=== PATIENT | female | born 1980 | race Two or more races ===

== ENCOUNTER 2025-07-22 10:37 | Inpatient (IN) | payer MEDICAID ==
[~2025-07-22] VITALS: Ht 172.7 cm; Wt 66.5 kg
[2025-07-22] MEDS ORDERED: LEVE500T9 PO (11:32)
[2025-07-22 11:33] LABS: PLATELET COUNT (AUTO) 310 K/uL (150-450); RED BLOOD CELL COUNT(AUTO) 3.39 MIL/uL (4.0-5.2); RED CELL DISTRIBUTION WIDTH 15.1 % (11.5-15.0); WHITE BLOOD COUNT (AUTO) 19.2 K/uL (4.3-11.0)
[2025-07-22 11:44] LABS: CALCIUM, SERUM 8.9 mg/dL (8.5-10.1); CREATININE 0.6 mg/dL (0.6-1.3); SODIUM SERUM 123.0 mmol/L (136-145); UREA NITROGEN, BLOOD 7.0 mg/dL (7-18)
[2025-07-22 11:47] LABS: INR 2.03 (0.91-1.10)
[2025-07-22 11:51] LABS: ASPARTATE AMINOTRANSFERASE 167.0 U/L (15-37); TOTAL PROTEIN, SERUM 8.8 g/dL (6.4-8.2)
[2025-07-22] MEDS ORDERED: IOHEXOL-300 100 ML VIAL IV ONE (12:31)
[2025-07-22] MEDS ORDERED: IV NS 0.9% 250 ML IV ONE (12:32)
[2025-07-22 13:49] LABS: PREGNANCY TEST URINE QUAL NEGATIVE (NEGATIVE)
[2025-07-22] MEDS ORDERED: MAG HYDROX/AL HYDROX/SIMETH 30 ML UDC PO PRN (14:00)
[2025-07-22] MEDS ORDERED: Z GUARD REMEDY 4 OZ OINT TP PRN (14:00)
[2025-07-22] MEDS ORDERED: ZOLPIDEM TARTRATE 5 MG TABLET PO PRN (14:00)
[2025-07-22] MEDS ORDERED: MAGNESIUM HYDROXIDE 30 ML UDC PO PRN (14:00)
[2025-07-22] MEDS ORDERED: ACETAMINOPHEN 325 MG TABLET PO PRN (14:00)
[2025-07-22] MEDS ORDERED: IV D5/0.45 NACL 1,000 ML IV PRN (14:00)
[2025-07-22] MEDS: IV D5/ 0.9% NACL 1,000 ML IV SCH (15:00)
[2025-07-22] MEDS ORDERED: POTASSIUM CL. PREMIX PERIPHER. 50 ML ONE (16:10)
[2025-07-22] MEDS: POTASSIUM CL. PREMIX PERIPHER. 50 ML IV SCH (16:20)
[2025-07-22] MEDS: LEVETIRACETAM (500MG) 500 MG in IV NS 0.9% 100 ML IV SCH (18:10)
[2025-07-22 20:00] VITALS: BP 116/86; TEMP 99; O2SAT 98
[2025-07-23] VITALS (7 sets, daily range): BP systolic 98–116; BP diastolic 70–86; TEMP 97.5–98.8; O2SAT 90–98
[2025-07-23] MEDS: ONDANSETRON HCL/PF 4 MG/2 ML VIAL IVP PRN (06:13)
[2025-07-23 07:50] LABS: PLATELET COUNT (AUTO) 244 K/uL (150-450); RED BLOOD CELL COUNT(AUTO) 2.76 MIL/uL (4.0-5.2); RED CELL DISTRIBUTION WIDTH 15.1 % (11.5-15.0); WHITE BLOOD COUNT (AUTO) 16.1 K/uL (4.3-11.0)
[2025-07-23 07:57] LABS: ASPARTATE AMINOTRANSFERASE 130.0 U/L (15-37); CALCIUM, SERUM 8.0 mg/dL (8.5-10.1); CREATININE 0.6 mg/dL (0.6-1.3); PHOSPHORUS 2.8 mg/dL (2.5-4.9); SODIUM SERUM 126.0 mmol/L (136-145); TOTAL PROTEIN, SERUM 6.6 g/dL (6.4-8.2); UREA NITROGEN, BLOOD 8.0 mg/dL (7-18)
[2025-07-23] MEDS: PANTOPRAZOLE 40 MG VIAL IV SCH (08:52)
[2025-07-23] MEDS: Magnesium 1GM/D5W 100ML PREMIX 100 ML IV SCH (10:30)
[2025-07-23] MEDS: ALBUMIN 25% 50 GM in PREMIX 1 EA IV ONE (13:50)
[2025-07-23] MEDS: ALBUMIN 25% 12.5 GM/50 ML BOTTLE IV STA (13:50)
[2025-07-23] MEDS ORDERED: ALBUMIN 25% 50 GM in PREMIX 1 EA IV PRN (14:00)
[2025-07-23 18:48] LABS: APPEARANCE,URINE CLEAR (CLEAR); BLOOD, URINE NEGATIVE Ery/uL (NEGATIVE); LEUKOCYTE ESTERASE ,URINE NEGATIVE (NEGATIVE); NITRITE, URINE POSITIVE (NEGATIVE); UGLUCOSE TRACE mg/dL (NEGATIVE)
[2025-07-23 18:56] LABS: CREATININE, URINE 119.1 MG/DL (30.0-125.0); URINE SODIUM, RANDOM < 5 mmol/l (40-220); URINE TOTAL PROTEIN 41.6 mg/dL (0-11.9)
[2025-07-23 19:07] LABS: ADD URINE CULTURE YES; SQUAMOUS EPITHELIAL CELL,UR Many /HPF (None Seen)
[2025-07-23] MEDS ORDERED: MIDAZOLAM HCL 2 MG/2ML VIAL ONE (19:35)
[2025-07-23 20:03] LABS: EOSINOPHIL,URINE None Seen
[2025-07-23] MEDS ORDERED: ANESTHESIA TRAY IN PYXIS 1 EA TRAY MC ONE (20:31)
[2025-07-24] VITALS: BP 103/74; TEMP 98.2; O2SAT 93
[2025-07-24 04:03] VITALS: BP 100/74; TEMP 97.8; O2SAT 95
[2025-07-24 06:57] LABS: PLATELET COUNT (AUTO) 219 K/uL (150-450); RED BLOOD CELL COUNT(AUTO) 2.62 MIL/uL (4.0-5.2); RED CELL DISTRIBUTION WIDTH 15.3 % (11.5-15.0); WHITE BLOOD COUNT (AUTO) 15.6 K/uL (4.3-11.0)
[2025-07-24 07:26] LABS: ASPARTATE AMINOTRANSFERASE 128.0 U/L (15-37); CALCIUM, SERUM 8.1 mg/dL (8.5-10.1); CREATININE 0.5 mg/dL (0.6-1.3); PHOSPHORUS 2.2 mg/dL (2.5-4.9); SODIUM SERUM 127.0 mmol/L (136-145); TOTAL PROTEIN, SERUM 6.5 g/dL (6.4-8.2); UREA NITROGEN, BLOOD 8.0 mg/dL (7-18)
[2025-07-24 08:00] VITALS: BP 110/81; TEMP 98.6; O2SAT 96
[2025-07-24 12:00] VITALS: BP 109/84; TEMP 98.4; O2SAT 94
[2025-07-24 16:00] VITALS: BP 117/88; TEMP 98.2; O2SAT 93
[2025-07-24] MEDS: K PHOS NEUTRAL 250 MG TABLET PO ONE (16:43)
[2025-07-24 20:00] VITALS: BP 116/84; TEMP 98.1; O2SAT 93
[2025-07-25] VITALS: BP 116/81; TEMP 98.1; O2SAT 94
[2025-07-25 04:00] VITALS: BP 98/71; TEMP 97.9; O2SAT 97
[2025-07-25 07:56] LABS: PLATELET COUNT (AUTO) 222 K/uL (150-450); RED BLOOD CELL COUNT(AUTO) 2.62 MIL/uL (4.0-5.2); RED CELL DISTRIBUTION WIDTH 15.6 % (11.5-15.0); WHITE BLOOD COUNT (AUTO) 16.9 K/uL (4.3-11.0)
[2025-07-25 07:58] LABS: CALCIUM, SERUM 8.2 mg/dL (8.5-10.1); CREATININE 0.5 mg/dL (0.6-1.3); PHOSPHORUS 2.5 mg/dL (2.5-4.9); SODIUM SERUM 128.0 mmol/L (136-145); UREA NITROGEN, BLOOD 9.0 mg/dL (7-18)
[2025-07-25 08:09] LABS: ASPARTATE AMINOTRANSFERASE 152.0 U/L (15-37); TOTAL PROTEIN, SERUM 6.4 g/dL (6.4-8.2)
[2025-07-25 08:30] VITALS: BP 120/93; TEMP 97.7; O2SAT 94
[2025-07-25] MEDS: SPIRONOLACTONE 25 MG TABLET PO SCH (10:39)
[2025-07-25 16:22] VITALS: BP 111/87; TEMP 98.6; O2SAT 92
[2025-07-25 20:00] VITALS: BP 118/86; TEMP 97.9; O2SAT 95
[2025-07-26 06:04] LABS: CALCIUM, SERUM 8.7 mg/dL (8.5-10.1); CREATININE 0.6 mg/dL (0.6-1.3); PHOSPHORUS 2.8 mg/dL (2.5-4.9); SODIUM SERUM 126.0 mmol/L (136-145); UREA NITROGEN, BLOOD 12.0 mg/dL (7-18)
[2025-07-26 06:07] LABS: ASPARTATE AMINOTRANSFERASE 149.0 U/L (15-37); TOTAL PROTEIN, SERUM 6.7 g/dL (6.4-8.2)
[2025-07-26 06:25] LABS: PLATELET COUNT (AUTO) 270 K/uL (150-450); RED BLOOD CELL COUNT(AUTO) 2.83 MIL/uL (4.0-5.2); RED CELL DISTRIBUTION WIDTH 15.5 % (11.5-15.0); WHITE BLOOD COUNT (AUTO) 19.4 K/uL (4.3-11.0)
[2025-07-26 08:00] VITALS: BP 106/76; TEMP 98.6; O2SAT 94
[2025-07-26] MEDS ORDERED: CEFTRIAXONE 1 G VIAL IM SCH (11:30)
[2025-07-26] MEDS: CEFTRIAXONE 1 G in IV D5W 50 ML IV SCH (11:50)
[2025-07-26 16:00] VITALS: BP 102/80; TEMP 98.8; O2SAT 95
[2025-07-26] MEDS: PROPRANOLOL HCL 10 MG TABLET PO SCH (16:38)
[2025-07-26] MEDS: FUROSEMIDE 40 MG TABLET PO SCH (16:38)
[2025-07-26] MEDS: SPIRONOLACTONE 25 MG TABLET PO SCH (16:39)
[2025-07-26 20:00] VITALS: BP 96/70; TEMP 98.1; O2SAT 96
[2025-07-27 06:16] LABS: ASPARTATE AMINOTRANSFERASE 135.0 U/L (15-37); CALCIUM, SERUM 7.8 mg/dL (8.5-10.1); CREATININE 0.6 mg/dL (0.6-1.3); SODIUM SERUM 123.0 mmol/L (136-145); TOTAL PROTEIN, SERUM 6.1 g/dL (6.4-8.2); UREA NITROGEN, BLOOD 13.0 mg/dL (7-18)
[2025-07-27 06:23] LABS: PHOSPHORUS 3.1 mg/dL (2.5-4.9); PLATELET COUNT (AUTO) 257 K/uL (150-450); RED BLOOD CELL COUNT(AUTO) 2.56 MIL/uL (4.0-5.2); RED CELL DISTRIBUTION WIDTH 15.8 % (11.5-15.0); WHITE BLOOD COUNT (AUTO) 18.2 K/uL (4.3-11.0)
[2025-07-27 08:00] VITALS: BP 93/69; TEMP 98.1; O2SAT 97
[2025-07-27] MEDS: PANTOPRAZOLE 40 MG TABLET.DR PO SCH (08:39)
[2025-07-27 09:57] LABS: BAND % (MANUAL) 1 % (0.0-5.0); EOSINOPHILS % (MANUAL) 1 % (0-4); LYMPHOCYTES % (MANUAL) 15 % (16-48); MONOCYTES % (MANUAL) 8 % (0-11.0); MYELOCYTES % 1 % (0-0); NEUTROPHILS % (MANUAL) 74 (42-76); PLATELET ESTIMATE ADEQUATE
[2025-07-27] MEDS: MAGNESIUM OXIDE 400 MG TABLET PO ONE (10:02)
[2025-07-27] MEDS: ALBUMIN 25% 25 GM in PREMIX 1 EA IV SCH (11:19)
[2025-07-27 16:00] VITALS: BP 92/70; TEMP 97.9; O2SAT 97
[2025-07-27 21:02] VITALS: BP 102/76; TEMP 98.4; O2SAT 94
[2025-07-28 06:17] LABS: PLATELET COUNT (AUTO) 233 K/uL (150-450); RED BLOOD CELL COUNT(AUTO) 2.26 MIL/uL (4.0-5.2); RED CELL DISTRIBUTION WIDTH 16.1 % (11.5-15.0); WHITE BLOOD COUNT (AUTO) 17.9 K/uL (4.3-11.0)
[2025-07-28 06:33] LABS: CALCIUM, SERUM 8.2 mg/dL (8.5-10.1); CREATININE 0.6 mg/dL (0.6-1.3); SODIUM SERUM 125.0 mmol/L (136-145); UREA NITROGEN, BLOOD 13.0 mg/dL (7-18)
[2025-07-28 08:00] VITALS: BP 105/74; TEMP 98.1; O2SAT 95
[2025-07-28 09:04] VITALS: BP 105/74
[2025-07-28] MEDS ORDERED: SPIR25TA6 PO (09:38)
[2025-07-28] MEDS ORDERED: PROP10TA68 PO (09:38)
[2025-07-28] MEDS ORDERED: FURO40TA5 PO (09:38)
[2025-07-28] MEDS ORDERED: CEPH-570 PO (09:40)
[2025-07-28] MEDS ORDERED: PANT40TA49 PO (09:40)
[2025-07-29] MEDS ORDERED: SPIR50TA PO (19:06)
[2025-07-29] MEDS ORDERED: PROP20TA7 PO (19:06)
== END 2025-07-28 16:30 | disposition home or self-care (01) | DRG 254 ==
LOC: ER 10:45 → MED 16:24 → TELE 19:32 → MED 07-25 08:55
PROVIDERS: ADMIT Student in an Organized Health Care Education/Training Program; ATTEND Internal Medicine
PROC: 0W9G3ZZ Drainage of Peritoneal Cavity, Percutaneous Approach (ICD-10-PCS; 2025-07-23)
PROC: 0DJ08ZZ Inspection of Upper Intestinal Tract, Via Natural or Artificial Opening Endoscopic (ICD-10-PCS; principal; 2025-07-23 18:40)
PROC: 0W9G3ZZ Drainage of Peritoneal Cavity, Percutaneous Approach (ICD-10-PCS; 2025-07-26)
DX: K31.89 Other diseases of stomach and duodenum (principal); E44.0 Moderate protein-calorie malnutrition; K70.31 Alcoholic cirrhosis of liver with ascites; E88.09 Other disorders of plasma-protein metabolism, not elsewhere classified; K92.2 Gastrointestinal hemorrhage, unspecified; K76.6 Portal hypertension; B96.20 Unspecified Escherichia coli [E. coli] as the cause of diseases classified elsewhere; N39.0 Urinary tract infection, site not specified; D64.9 Anemia, unspecified; G40.909 Epilepsy, unspecified, not intractable, without status epilepticus; F10.10 Alcohol abuse, uncomplicated; E87.1 Hypo-osmolality and hyponatremia; D72.829 Elevated white blood cell count, unspecified; E87.6 Hypokalemia; R74.01 Elevation of levels of liver transaminase levels; Y90.9 Presence of alcohol in blood, level not specified; Z68.22 Body mass index [BMI] 22.0-22.9, adult
CPT/HCPCS: 36415; 49083; 80048-TC; 80053-TC; 80076-TC; 81001; 82570-TC; 83690-TC; 83735-TC; 83935-TC; 84100-TC; 84295-TC; 84300-TC; 84443-TC; 84550-TC; 84702-TC; 84703-TC; 85025-TC; 85027-TC; 85730-TC; 86850-TC; 87081-TC; 87086-TC; 87186-TC; A4216; A4223; G0378; J0696; J1953; J2250; J2405; J2470; J2704; J3475; J3480; J3490; J7030; J7040; J7042; J7050; J7060; P9047; Q9967

== ENCOUNTER 2025-07-31 11:49 | Inpatient (IN) | payer MEDICAID ==
[~2025-07-31] VITALS: Ht 172.7 cm; Wt 67.6 kg
[~2025-07-31 11:49] MED LIST: CEPH-570 PO; FURO40TA5 PO; LEVE500T9 PO; PANT40TA49 PO; PROP20TA7 PO; SPIR50TA PO
[2025-07-31 12:52] LABS: PLATELET COUNT (AUTO) 407 K/uL (150-450); RED BLOOD CELL COUNT(AUTO) 2.72 MIL/uL (4.0-5.2); RED CELL DISTRIBUTION WIDTH 17.8 % (11.5-15.0); WHITE BLOOD COUNT (AUTO) 23.0 K/uL (4.3-11.0)
[2025-07-31 12:56] LABS: CALCIUM, SERUM 8.7 mg/dL (8.5-10.1); CREATININE 0.6 mg/dL (0.6-1.3); SODIUM SERUM 125.0 mmol/L (136-145); UREA NITROGEN, BLOOD 11.0 mg/dL (7-18)
[2025-07-31 12:58] LABS: SERUM AMMONIA 33.0 umol/L (11-32)
[2025-07-31 12:59] LABS: INR 1.55 (0.91-1.10)
[2025-07-31 13:02] LABS: ASPARTATE AMINOTRANSFERASE 185.0 U/L (15-37); TOTAL PROTEIN, SERUM 8.1 g/dL (6.4-8.2)
[2025-07-31] MEDS ORDERED: LIDOCAINE 1%-EPI 1:100,000 20 ML VIAL ONE (13:21)
[2025-07-31 14:01] LABS: APPEARANCE,URINE CLEAR (CLEAR); BLOOD, URINE NEGATIVE Ery/uL (NEGATIVE); LEUKOCYTE ESTERASE ,URINE NEGATIVE (NEGATIVE); NITRITE, URINE POSITIVE (NEGATIVE); UGLUCOSE TRACE mg/dL (NEGATIVE)
[2025-07-31 14:08] LABS: ADD URINE CULTURE YES; SQUAMOUS EPITHELIAL CELL,UR Moderate /HPF (None Seen)
[2025-07-31] MEDS ORDERED: Z GUARD REMEDY 4 OZ OINT TP PRN (14:30)
[2025-07-31] MEDS ORDERED: ONDANSETRON HCL/PF 4 MG/2 ML VIAL IVP PRN (14:30)
[2025-07-31] MEDS ORDERED: MAGNESIUM HYDROXIDE 30 ML UDC PO PRN (14:30)
[2025-07-31] MEDS ORDERED: ZOLPIDEM TARTRATE 5 MG TABLET PO PRN (14:30)
[2025-07-31] MEDS ORDERED: MAG HYDROX/AL HYDROX/SIMETH 30 ML UDC PO PRN (14:30)
[2025-07-31 16:00] VITALS: BP 94/66; TEMP 98.2; O2SAT 98
[2025-07-31] MEDS ORDERED: LACTULOSE 10 G/15 ML UDC (PYXIS) PO PRN (16:00)
[2025-07-31 20:00] VITALS: BP 104/72; TEMP 98.2; O2SAT 96
[2025-07-31] MEDS: PANTOPRAZOLE 40 MG TABLET.DR PO SCH (21:45)
[2025-08-01 04:00] VITALS: BP 108/80; TEMP 98.2; O2SAT 98
[2025-08-01 07:11] LABS: PLATELET COUNT (AUTO) 325 K/uL (150-450); RED BLOOD CELL COUNT(AUTO) 2.31 MIL/uL (4.0-5.2); RED CELL DISTRIBUTION WIDTH 18.1 % (11.5-15.0); WHITE BLOOD COUNT (AUTO) 20.1 K/uL (4.3-11.0)
[2025-08-01 07:38] LABS: CALCIUM, SERUM 8.2 mg/dL (8.5-10.1); CREATININE 0.5 mg/dL (0.6-1.3); PHOSPHORUS 3.6 mg/dL (2.5-4.9); SODIUM SERUM 124.0 mmol/L (136-145); UREA NITROGEN, BLOOD 12.0 mg/dL (7-18)
[2025-08-01 08:00] VITALS: BP 149/117; TEMP 98.7; O2SAT 98
[2025-08-01] MEDS: LEVETIRACETAM (500MG) 500 MG in IV NS 0.9% 100 ML IV SCH (10:48)
[2025-08-01] MEDS: ACETAMINOPHEN 325 MG TABLET PO PRN (11:35)
[2025-08-01 16:00] VITALS: BP 92/68; TEMP 98.6; O2SAT 96
[2025-08-01] MEDS: CEPHALEXIN MONOHYDRATE 500 MG CAPSULE PO SCH (18:10)
[2025-08-01 20:00] VITALS: BP 100/77; TEMP 98.3; O2SAT 95
[2025-08-01] MEDS: LEVETIRACETAM (250 MG) 250 MG TABLET PO SCH (20:16)
[2025-08-02 04:00] VITALS: BP 91/65; TEMP 98.8; O2SAT 96
[2025-08-02 06:52] LABS: PLATELET COUNT (AUTO) 338 K/uL (150-450); RED BLOOD CELL COUNT(AUTO) 2.29 MIL/uL (4.0-5.2); RED CELL DISTRIBUTION WIDTH 17.6 % (11.5-15.0); WHITE BLOOD COUNT (AUTO) 21.9 K/uL (4.3-11.0)
[2025-08-02 07:05] LABS: ASPARTATE AMINOTRANSFERASE 160.0 U/L (15-37); CALCIUM, SERUM 8.1 mg/dL (8.5-10.1); CREATININE 0.6 mg/dL (0.6-1.3); PHOSPHORUS 4.0 mg/dL (2.5-4.9); SODIUM SERUM 126.0 mmol/L (136-145); TOTAL PROTEIN, SERUM 6.3 g/dL (6.4-8.2); UREA NITROGEN, BLOOD 10.0 mg/dL (7-18)
[2025-08-02 19:54] LABS: APPEARANCE,SPUN,BODY FLUID CLEAR (CLEAR)
[2025-08-02 19:56] LABS: MONOCYTES,BODY FLUID 14 %; TOTAL VOLUME,BODY FLUID 5700 mL; WBC, BODY FLUID 89 /cu. mm. (0-200)
== END 2025-08-02 18:15 | disposition home or self-care (01) | DRG 280 ==
LOC: ER 11:49 → MEDSG1 14:24
PROC: 0W9G3ZZ Drainage of Peritoneal Cavity, Percutaneous Approach (ICD-10-PCS; principal; 2025-08-02)
DX: K70.31 Alcoholic cirrhosis of liver with ascites (principal); D68.9 Coagulation defect, unspecified; K76.6 Portal hypertension; D50.9 Iron deficiency anemia, unspecified; E87.1 Hypo-osmolality and hyponatremia; F10.10 Alcohol abuse, uncomplicated; D72.829 Elevated white blood cell count, unspecified; G40.909 Epilepsy, unspecified, not intractable, without status epilepticus; K31.9 Disease of stomach and duodenum, unspecified; K31.89 Other diseases of stomach and duodenum; E80.6 Other disorders of bilirubin metabolism; E87.70 Fluid overload, unspecified
CPT/HCPCS: 36415; 49083; 70450-TC; 71045-TC; 80048-TC; 80053-TC; 81001; 82140-TC; 83735-TC; 84100-TC; 84702-TC; 85025-TC; 85610-TC; 87086-TC; 89051-TC; 95819-TC; A4223; A6407; G0378; J1953; J3490; J7030; J7050

== ENCOUNTER 2025-08-06 12:40 | Emergency (ER) | payer MEDICAID ==
[~2025-08-06] VITALS: Ht 172.7 cm; Wt 67.1 kg
[2025-08-06 13:46] LABS: PLATELET COUNT (AUTO) 408 K/uL (150-450); RED BLOOD CELL COUNT(AUTO) 2.54 MIL/uL (4.0-5.2); RED CELL DISTRIBUTION WIDTH 16.4 % (11.5-15.0); WHITE BLOOD COUNT (AUTO) 23.8 K/uL (4.3-11.0)
[2025-08-06 13:55] LABS: INR 1.53 (0.91-1.10)
[2025-08-06 13:57] LABS: ASPARTATE AMINOTRANSFERASE 230.0 U/L (15-37); CALCIUM, SERUM 8.2 mg/dL (8.5-10.1); CREATININE 0.6 mg/dL (0.6-1.3); SODIUM SERUM 124.0 mmol/L (136-145); TOTAL PROTEIN, SERUM 6.8 g/dL (6.4-8.2); UREA NITROGEN, BLOOD 15.0 mg/dL (7-18)
[2025-08-06] MEDS ORDERED: LEVE500T9 PO (17:08)
[2025-08-06 17:19] LABS: WBC, BODY FLUID 48 /cu. mm. (0-200)
[2025-08-06 17:36] LABS: APPEARANCE,SPUN,BODY FLUID HAZY (CLEAR)
[2025-08-06 17:37] LABS: TOTAL VOLUME,BODY FLUID 50 mL
[2025-08-06 18:25] LABS: PROTEIN, BODY FLUID 1.1 G/DL
[2025-08-06 18:48] VITALS: BP 98/66; TEMP 97.9; O2SAT 97
[2025-08-06 20:13] LABS: MACROPHAGES, BODY FLUID 49
== END 2025-08-06 18:49 | disposition home or self-care (01) ==
LOC: ER 13:50
DX: K70.31 Alcoholic cirrhosis of liver with ascites (principal); D72.829 Elevated white blood cell count, unspecified; Z79.899 Other long term (current) drug therapy; Z88.1 Allergy status to other antibiotic agents; Z91.018 Allergy to other foods; Z60.2 Problems related to living alone
CPT/HCPCS: 36415; 49083; 80048-TC; 80076-TC; 83690-TC; 85025-TC; 85730-TC; 89051-TC